=== PATIENT | male | born 1960 | race Caucasian/White ===

== ENCOUNTER → 2017-01-17 | Outpatient (CLI) | payer MEDICAID | LOC: BMCIMAGING 16:41 | PROVIDERS: ATTEND Internal Medicine | DX: M79.641 Pain in right hand (principal); M79.642 Pain in left hand ==

== ENCOUNTER 2017-02-16 16:19 | Emergency (ER) | payer MEDICAID ==
[2017-02-16 16:36] VITALS: RESP 16; TEMP 97.9
[2017-02-16] MEDS ORDERED: NS 500 ML IV ONE (16:42)
--- NOTE | 2017-02-16 16:46 | CPEKG ---
Heart Rate: 80 RR Interval: 750 P-R Interval: 172 QRSD Interval: 82 QT Interval: 364 QTC Interval: 420 P [place]: 61 QRS [place]: 61 T Wave [place]: 76 EKG Severity - NORMAL ECG - EKG Impression: SINUS RHYTHM Electronically Signed By: Latricia Pederson 16-Feb-2017 21:26:11
[2017-02-16 16:59] LABS: % IMMATURE GRANULYOCYTES 0.7 % (0.0-1.1); ABSOLUTE IMMATURE GRANULOCYTES 0.05 10^3/uL (0.00-0.10); ADD DIFF? NO; ADD MORPH? NO; ADD SCAN? NO; ATYPICAL LYMPHOCYTE FLAG 0 (0-99); FRAGMENT RBC FLAG 0 (0-99); HEMATOCRIT 43.6 % (40.0-51.0); HEMOGLOBIN 15.4 g/dL (13.7-17.5); LEFT SHIFT FLG 0 (0-99); LIPEMIA HEMOLYSIS FLAG 90 (0-99); MEAN CELL HEMOGLOBIN 29.6 pg (27.9-34.1); MEAN CELL HEMOGLOBIN CONCENTR. 35.3 g/dL (32.4-36.7); MEAN CELL VOLUME 83.8 fL (81.5-99.8); MEAN PLATELET VOLUME 10.5 fL (8.7-11.7); PLATELET CLUMPS FLAG 0 (0-99); PLATELET COUNT 150 10^3/uL (150-400); RED CELL DISTRIBUTION WIDTH 12.5 % (11.5-15.2)
--- NOTE | 2017-02-16 17:00 | EDPHY ---
H & P Time Seen by Provider: 02/16/17 16:38 HPI/ROS: HPI Lightheaded. Nauseous. 56-year-old male by private vehicle. This patient reports that he was at work. Was having a meeting with his boss at 3:00 p.m.. Reports sudden onset of feeling lightheaded with associated nausea. He did not lose consciousness. He reports he has had episodes similar to this for years. He reports that exercise or physical exertion usually makes the episodes better. He reports that increasing frequency of these episodes. Reports he used to have 1-2 year than 1 month and now he is having them almost daily. He admits to being mildly anxious. He does have a history of vascular disease. His friend just of a heart attack this past weekend. With this episode today with his prior episodes he denies any associated chest pain, shortness of breath, sudden onset headache, palpitations. ROS: Constitutional: No fever, no chills. As above. Eyes: No discharge. No changes in vision. ENT: No sore throat. No nasal congestion or rhinorrhea. Respiratory: No cough. No shortness of breath. Cardiac: No chest pain, no palpitations. Gastrointestinal: No abdominal pain, no vomiting, no diarrhea. As above. Genitourinary: No hematuria. No dysuria or increased frequency with urination. Musculoskeletal: No back pain. No neck pain. No myalgias or arthralgias. Skin: No rashes. Neurological: No headache. No focal weakness or altered sensation. Past medical history: Type 2 diabetes, coronary artery disease, sinus polyps, primary care physician is Dr. Sultana at [facility]. Facilities Administrator is Dr. Miles. He has not seen Dr. Miles in a couple of years. Social history: Nonsmoker. Physically active. Here by himself. Denies alcohol. Physical Exam: General Appearance: Alert, mildly anxious. This patient is responding to questions appropriately and in full sentences. This patient appears well- hydrated and well-nourished. Eyes: Pupils equal and round no pallor or injection. No lid edema, erythema or injection. Respiratory: There are no retractions, lungs are clear to auscultation with good air movement bilaterally. Cardiovascular: Regular rate and rhythm. No murmur. Gastrointestinal: Abdomen is soft and nontender, no masses, bowel sounds normal. No focal tenderness at McBurney's point. No Cueto sign. Neurological: Motor sensory function is grossly intact. Cranial nerves are normal. Gait is normal. Skin: Warm and dry, no rashes. Musculoskeletal: Neck is supple and nontender. Extremities are symmetrical. All joints range without pain or impingement. Psychiatric: No agitation. No depression. Database: EKG: EKG time is 4:45 p.m.; EKG shows a narrow complex normal sinus rhythm with a ventricular rate of 80. The NH, QRS, QT intervals are within normal limits. There are no ST-T wave changes indicative of ischemic or injury pattern. No evidence of right heart strain. No evidence of WPW, Brugada syndrome, hypertrophic cardiomyopathy, right ventricular dysplasia. Interpreted by me. Imaging: Procedures: Emergency department course: IV placed. Patient placed on a monitor. EKG performed. He will be given 1 L of IV normal saline. 6:00 p.m., patient re-evaluated. Resting comfortably at this time. He is asymptomatic. His vital signs have been reviewed and are normal. Results of his diagnostic workup were discussed with him. 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 He feels comfortable with this plan. He is requesting discharge. Return to emergency department precautions were thoroughly reviewed with him. All of his questions were answered. He was discharged in good condition. Differential Diagnosis: The differential diagnosis on this patient includes but is not limited to anxiety reaction, thyroid disorder, arrhythmia, stress reaction. Pulmonary embolism, acute coronary syndrome, CVA, TIA, DKA unlikely. This represents a partial list of diagnoses considered. These considerations are based on history , physical exam, past history, reassessment and diagnostic testing. Smoking Status: Never smoked Constitutional: Initial Vital Signs Temperature (C) 36.6 C 02/16/17 16:33 Heart Rate 77 02/16/17 16:33 Respiratory Rate 16 02/16/17 16:33 Blood Pressure 158/96 H 02/16/17 16:33 O2 Sat (%) 95 02/16/17 16:33 O2 Delivery Mode Room Air Allergies/Adverse Reactions: No Known Allergies Allergy (Unverified 01/20/13 16:11) Home Medications: Medication Instructions Recorded Aspirin [Aspirin 81mg (OTC)] 1 tab PO DAILY 01/20/13 Cholecalciferol Vit D3 [Vitamin D3 2,000 units PO DAILY 01/20/13 2000 units (OTC)] Cyclobenzaprine [Flexeril 10 MG 10 mg PO DAILY PRN 01/20/13 (RX)] Herbals/Supplements -Info Only 1 each PO AD 01/20/13 Ibuprofen [Motrin 200 mg (OTC)] 600 mg PO PRN PRN 01/20/13 Levothyroxine [Synthroid 100 mcg 100 mcg PO DAILY06 01/20/13 (RX)] Metformin HCl 1 tab BID 03/09/16 Co Q-10 100 mg Softgel 1 cap DAILY 03/12/16 Livalo 1 tab DAILY 03/12/16 Lunesta 0.5 tab DAILY 03/12/16 Magnesium Oxide 500 mg 1 tab HS 03/12/16 Melatonin 1 mg 2 tab HS 03/12/16 Ondansetron Odt [Zofran Odt 4 mg 4 mg PO Q4 PRN #6 tab 07/09/16 (*)] Pantoprazole Sodium [Protonix 40mg 40 mg PO DAILY #20 tab 07/09/16 (*)] Medical Decision Making - Data Points Laboratory Results: Laboratory Results 02/16/17 16:43 02/16/17 16:43 02/16/17 02/16/17 02/16/17 16:43 16:43 16:43 WBC 7.60 10^3/uL 10^3/uL (3.80-9.50) RBC 5.20 10^6/uL 10^6/uL (4.40-6.38) Hgb 15.4 g/dL g/dL (13.7-17.5) Hct 43.6 % % (40.0-51.0) MCV 83.8 fL fL (81.5-99.8) MCH 29.6 pg pg (27.9-34.1) MCHC 35.3 g/dL g/dL (32.4-36.7) RDW 12.5 % % (11.5-15.2) Plt Count 150 10^3/uL 10^3/uL (150-400) MPV 10.5 fL fL (8.7-11.7) Neut % (Auto) 75.0 % H % (39.3-74.2) Lymph % (Auto) 15.5 % % (15.0-45.0) Ector % (Auto) 7.8 % % (4.5-13.0) Eos % (Auto) 0.7 % % (0.6-7.6) Baso % (Auto) 0.3 % % (0.3-1.7) Nucleat RBC Rel Count 0.0 % % (0.0-0.2) Absolute Neuts (auto) 5.71 10^3/uL 10^3/uL (1.70-6.50) Absolute Lymphs (auto) 1.18 10^3/uL 10^3/uL (1.00-3.00) Absolute Monos (auto) 0.59 10^3/uL 10^3/uL (0.30-0.80) Absolute Eos (auto) 0.05 10^3/uL 10^3/uL (0.03-0.40) Absolute Basos (auto) 0.02 10^3/uL 10^3/uL (0.02-0.10) Absolute Nucleated RBC 0.00 10^3/uL 10^3/uL (0-0.01) Immature Gran % 0.7 % % (0.0-1.1) Immature Gran # 0.05 10^3/uL 10^3/uL (0.00-0.10) PT 13.5 SEC SEC (12.0-15.0) INR 1.04 (0.83-1.16) APTT 28.6 SEC SEC (23.0-38.0) Sodium 138 mEq/L mEq/L (134-144) Potassium 4.5 mEq/L mEq/L (3.5-5.2) Chloride 101 mEq/L mEq/L (97-110) Carbon Dioxide 22 mEq/l mEq/l (22-31) Anion Gap 15 mEq/L mEq/L (8-16) BUN 20 mg/dL mg/dL (7-23) Creatinine 1.0 mg/dL mg/dL (0.7-1.3) Estimated GFR > 60 Glucose 130 mg/dL H mg/dL (70-100) Calcium 10.0 mg/dL mg/dL (8.5-10.4) Creatine Kinase 41 IU/L IU/L (0-224) CK-MB (CK-2) Fraction 0.52 ng/mL ng/mL (0-3.19) Troponin I < 0.012 ng/mL ng/mL (0-0.034) TSH 2.070 uIU/mL uIU/mL (0.465-4.680) Medications Given: Discontinued Medications Sodium Chloride (Ns) 500 mls @ 1,000 mls/hr IV ONCE ONE PRN Reason: Protocol Stop: 02/16/17 17:11 Last Admin: 02/16/17 17:10 Dose: 500 mls Departure - Departure Disposition: Home, Routine, Self-Care Clinical Impression: Near syncope Condition: Good Instructions: Near Syncope (ED) Additional Instructions: Read and follow provided instructions. Follow-up with Neurology, Dr. Prakash Cox, as I discussed with you. You should also follow up with a garment form assembler for re-evaluation. Dr. Tutu Garrett has taken over Dr. Jd lepe. He is affiliated with [facility]. Please call his office in the morning for follow-up appointment this week. Avoid any strenuous activity until you have been cleared by Neurology. Return to the emergency department for worsening fainting episodes, chest pain, difficulty breathing, loss of sensation or weakness in your extremities or other serious concerns. Referrals: Natalio Garrett MD [Medical Doctor] - As per Instructions Prakash Cox MD [Medical Doctor] - As per Instructions
[2017-02-16 17:05] LABS: INR 1.04 (0.83-1.16); PROTIME(PATIENT) 13.5 SEC (12.0-15.0)
[2017-02-16 17:06] LABS: APTT 28.6 SEC (23.0-38.0)
[2017-02-16 17:14] LABS: ANION GAP 15 mEq/L (8-16); CARBON DIOXIDE 22 mEq/l (22-31); CHLORIDE 101 mEq/L (97-110); GLOMERULAR FILTRATION RATE > 60; GLUCOSE 130 mg/dL (70-100); POTASSIUM 4.5 mEq/L (3.5-5.2); SODIUM 138 mEq/L (134-144)
[2017-02-16 17:25] LABS: CREATINE KINASE-MB FRACTION 0.52 ng/mL (0-3.19); TROPONIN I < 0.012 ng/mL (0-0.034)
[2017-02-16 18:06] VITALS: BP 136/90; PULSE 75; O2SAT 96
== END 2017-02-16 18:31 | disposition home or self-care (01) ==
DX: R55 Syncope and collapse (principal); E11.9 Type 2 diabetes mellitus without complications; I25.10 Atherosclerotic heart disease of native coronary artery without angina pectoris; Z79.82 Long term (current) use of aspirin

== ENCOUNTER 2017-02-16 22:27 | Emergency (ER) | payer MEDICAID ==
[2017-02-16 22:32] VITALS: BP 131/77; PULSE 79; RESP 16; TEMP 98.4; O2SAT 95
--- NOTE | 2017-02-16 23:05 | EDPHY ---
H & P Stated Complaint: L wrist hematoma Time Seen by Provider: 02/16/17 23:01 HPI/ROS: Chief Complaint: Left wrist pain HPI: 56-year-old male presenting with tenderness over his left wrist where he had an IV earlier today. Patient was here earlier for evaluation of a syncopal event. Had an IV in his left wrist. He has noticed this evening some increasing swelling and some minor tenderness at the site. No redness. No bony tenderness. His presenting for evaluation ROS: 10 point Review of Systems is negative except as noted in the HPI. Physical Exam: General: Awake, alert, no acute distress Left wrist. There is a small 1.5 cm hematoma underlying his IV site over his left radial wrist. There is no erythema. Is nontender. There is no bony tenderness. There is no proximal erythema or swelling or palpable cord. Skin: No rash - Personal History Current Tetanus/Diphtheria Vaccine: Yes Current Tetanus Diphtheria and Acellular Pertussis (TDAP): Yes - Medical/Surgical History Hx Asthma: No Hx Chronic Respiratory Disease: No Hx Diabetes: Yes Hx Cardiac Disease: Yes Hx Renal Disease: No Hx Cirrhosis: No Hx Alcoholism: No Hx HIV/AIDS: No Hx Splenectomy or Spleen Trauma: No Other PMH: CAD,HONORIO,SINUS POLYPS REMOVED, Prediabetic - Social History Smoking Status: Never smoked Constitutional: Initial Vital Signs Temperature (C) 36.9 C 02/16/17 22:30 Heart Rate 79 02/16/17 22:30 Respiratory Rate 16 02/16/17 22:30 Blood Pressure 131/77 H 02/16/17 22:30 O2 Sat (%) 95 02/16/17 22:30 O2 Delivery Mode Room Air Allergies/Adverse Reactions: No Known Allergies Allergy (Unverified 02/16/17 22:30) Home Medications: Medication Instructions Recorded Aspirin [Aspirin 81mg (OTC)] 1 tab PO DAILY 01/20/13 Cholecalciferol Vit D3 [Vitamin D3 2,000 units PO DAILY 01/20/13 2000 units (OTC)] Cyclobenzaprine [Flexeril 10 MG 10 mg PO DAILY PRN 01/20/13 (RX)] Herbals/Supplements -Info Only 1 each PO AD 01/20/13 Ibuprofen [Motrin 200 mg (OTC)] 600 mg PO PRN PRN 01/20/13 Levothyroxine [Synthroid 100 mcg 100 mcg PO DAILY06 01/20/13 (RX)] Metformin HCl 1 tab BID 03/09/16 Co Q-10 100 mg Softgel 1 cap DAILY 03/12/16 Livalo 1 tab DAILY 03/12/16 Lunesta 0.5 tab DAILY 03/12/16 Magnesium Oxide 500 mg 1 tab HS 03/12/16 Melatonin 1 mg 2 tab HS 03/12/16 Ondansetron Odt [Zofran Odt 4 mg 4 mg PO Q4 PRN #6 tab 07/09/16 (*)] Pantoprazole Sodium [Protonix 40mg 40 mg PO DAILY #20 tab 07/09/16 (*)] Medical Decision Making ED Course/Re-evaluation: 56-year-old male who has a complication of a hematoma from his left wrist IV site. There are no signs of infection or propagating thrombosis at this time. Will discharge with precautions and follow up with primary care physician as needed. Departure - Departure Disposition: Home, Routine, Self-Care Clinical Impression: Hematoma of IV site Condition: Good Instructions: Hematoma (ED) Additional Instructions: Return to the emergency department for increasing pain, increasing swelling, redness, fevers, chills, or any other concerns. Referrals: Elisa Sultana MD [Primary Care Provider] - As per Instructions
== END 2017-02-16 23:15 | disposition home or self-care (01) ==
DX: M79.81 Nontraumatic hematoma of soft tissue (principal); E11.9 Type 2 diabetes mellitus without complications; I25.10 Atherosclerotic heart disease of native coronary artery without angina pectoris; Z79.82 Long term (current) use of aspirin; Z79.84 Long term (current) use of oral hypoglycemic drugs

== ENCOUNTER → 2017-03-14 | Outpatient (CLI) | payer MEDICAID ==
--- NOTE | 2017-03-15 11:31 | CPEEG ---
[f rep st] ELECTROENCEPHALOGRAM EEG DATE OF STUDY: 03/14/2017 DATE OF INTERPRETATION: 03/14/2017. INTERPRETATION: Normal EEG during wakefulness and sleep. There is no potentially epileptogenic abn ormalities present in the recording. REPORT: This EEG contains 9 Hz alpha to the posterior head regions. The background activity was no rmal and symmetric. There was no abnormal activation at rest, during photic stimulation, or hyperve ntilation. The patient became drowsy and fell into light sleep intermittently during the study. Th ere was no abnormal activation during drowsiness, sleep, or during times of arousal. /[id number]/MODL
== END ==
LOC: FCPNEURO 10:52
PROVIDERS: ATTEND Psychiatry & Neurology Neurology
DX: R47.9 Unspecified speech disturbances (principal)

== ENCOUNTER → 2017-03-30 | Outpatient (CLI) | payer MEDICAID ==
[~2017-03-30] MED LIST: IOPAMIDOL (ISOVUE 370) 100 ML BTL IV ONE
== END ==
LOC: FIMAGING 13:47
PROVIDERS: ATTEND Psychiatry & Neurology Neurology
DX: R47.9 Unspecified speech disturbances (principal); R41.82 Altered mental status, unspecified
CPT/HCPCS: Q9967

== ENCOUNTER → 2017-04-22 | Outpatient (CLI) | payer MEDICAID | LOC: FIMAGING 14:34 | PROVIDERS: ATTEND Physician Assistant ==

== ENCOUNTER 2017-09-28 20:51 | Emergency (ER) | payer MEDICAID ==
--- NOTE | 2017-09-28 22:09 | EDPHY ---
H & P Stated Complaint: ACHES , PAIN, CHILLS, FEVER THIS EVENING 102.3 Time Seen by Provider: 09/28/17 21:44 HPI/ROS: CHIEF COMPLAINT: Flu-like symptoms since this morning HISTORY OF PRESENT ILLNESS: 56-year-old immunocompetent male with up-to-date influenza vaccination awoke with flu-like symptoms since this morning, fever, chills, myalgias. No cough. No sore throat. No abdominal pain. No urinary abnormality. No nuchal rigidity. REVIEW OF SYSTEMS: A ten point review of systems was performed and is negative with the exception of the items mentioned in the HPI PAST MEDICAL & SURGICAL HISTORY: up-to-date with influenza vaccination SOCIAL HISTORY: Has a 5-year-old son. 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 Appears to be in no acute distress. 2) HEAD: Normocephalic, atraumatic 3) HEENT: Pupils equal, round, reactive to light bilaterally. Sclera anicteric. Nasopharynx, oropharynx, clear, no lesions. No tonsillar enlargement or exudate. No trismus or drooling Ears bilaterally with normal tympanic membranes. 4) NECK: Full range of motion, no meningeal signs. No adenopathy 5) LUNGS: Clear auscultation bilaterally, no wheezes, no rhonchi, no retractions. 6) HEART: Regular rate and rhythm, no murmur, no heave, no gallop. 7) ABDOMEN: No guarding, no rebound, no focal tenderness, negative McBurney's, negative Cueto's, negative Rovsing's, negative peritoneal sign, 8) MUSCULOSKELETAL: Moving all extremities, no focal areas of tenderness, no obvious trauma. No peripheral edema or discoloration. 9) BACK: No CVA tenderness, no midline vertebral tenderness, no fluctuance, no step-off, no obvious trauma, no visual or palpable abnormality. 10) SKIN: No rash, no petechiae. 11) Psychiatric: Patient is oriented X 3, there is no agitation. DIFFERENTIAL DIAGNOSIS: In no particular include but limited to influenza, viral syndrome, pneumonia, bronchitis - Personal History Current Tetanus Diphtheria and Acellular Pertussis (TDAP): Yes - Medical/Surgical History Hx Asthma: No Hx Chronic Respiratory Disease: No Hx Diabetes: Yes Hx Cardiac Disease: Yes Hx Renal Disease: No Hx Cirrhosis: No Hx Alcoholism: No Hx HIV/AIDS: No Hx Splenectomy or Spleen Trauma: No Other PMH: CAD,HONORIO,SINUS POLYPS REMOVED, Prediabetic (WAS FULL DIABETIC) - Social History Smoking Status: Never smoked Constitutional: Initial Vital Signs Temperature (C) 37.4 C 09/28/17 20:58 Heart Rate 98 09/28/17 20:58 Respiratory Rate 18 09/28/17 20:58 Blood Pressure 116/74 09/28/17 20:58 O2 Sat (%) 94 09/28/17 20:58 O2 Delivery Mode Room Air Allergies/Adverse Reactions: No Known Allergies Allergy (Unverified 09/28/17 20:55) Home Medications: Medication Instructions Recorded Aspirin [Aspirin 81mg (OTC)] 1 tab PO DAILY 01/20/13 Cholecalciferol Vit D3 [Vitamin D3 2,000 units PO DAILY 01/20/13 2000 units (OTC)] Cyclobenzaprine [Flexeril 10 MG 10 mg PO DAILY PRN 01/20/13 (RX)] Herbals/Supplements -Info Only 1 each PO AD 01/20/13 Ibuprofen [Motrin 200 mg (OTC)] 600 mg PO PRN PRN 01/20/13 Levothyroxine [Synthroid 100 mcg 100 mcg PO DAILY06 01/20/13 (RX)] Metformin HCl 1 tab BID 03/09/16 Co Q-10 100 mg Softgel 1 cap DAILY 03/12/16 Livalo 1 tab DAILY 03/12/16 Lunesta 0.5 tab DAILY 03/12/16 Magnesium Oxide 500 mg 1 tab HS 03/12/16 Melatonin 1 mg 2 tab HS 03/12/16 Fish Oil 1,000 mg Softgel 09/28/17 Turmeric 09/28/17 traZODone 09/28/17 Medical Decision Making ED Course/Re-evaluation: Patient is not hypoxemic, does not appear toxic. I think he can be discharged with supportive care instructions. Care of patient under supervision of secondary supervising physician Dr Pedro . - Data Points Laboratory Results: 09/28/17 21:43 Nasal Influenza A PCR Pending Nasal Influenza B PCR Pending Departure - Departure Disposition: Home, Routine, Self-Care Clinical Impression: Influenza Condition: Good Instructions: Influenza (ED) Additional Instructions: Return to the emergency department immediately for change in breathing habits, change in voice, change in swallowing habits, change in mental status, or any other symptoms that concern you.Adult Pain & Fever Control: We recommend Acetaminophen (Tylenol) and Ibuprofen (Motrin,Advil) for pain and fever control. When fever is high or pain severe, both drugs can be used at the same time, but at different intervals. Please note the time differences. Your dose is: Acetaminophen 1000mg every 4 to 6 hours Ibuprofen 800mg every 6 hours with food OR Note: do not take Acetaminophen with Hydrocodone (Vicodin, Lortab) or Oycodone (Percocet). These medications also contain Acetaminophen. No more than 3000mg of Acetaminophen should be taken in 24 hours (for an adult). Referrals: Elisa Sultana MD [Primary Care Provider] - As per Instructions
[2017-09-28] MEDS ORDERED: ACETAMINOPHEN 500 MG TAB PO ONE (22:43)
[2017-09-28 22:54] VITALS: BP 106/70; PULSE 90; RESP 20; TEMP 102.7; O2SAT 93
== END 2017-09-28 22:54 | disposition home or self-care (01) ==
DX: J11.1 Influenza due to unidentified influenza virus with other respiratory manifestations (principal); I25.10 Atherosclerotic heart disease of native coronary artery without angina pectoris; E11.9 Type 2 diabetes mellitus without complications; Z79.82 Long term (current) use of aspirin; Z79.84 Long term (current) use of oral hypoglycemic drugs